=== PATIENT | male | born 1960 | race Caucasian/White ===

== ENCOUNTER 2017-09-25 08:04 | Outpatient (RCR) | payer MEDICAID | END 2017-11-09 | disposition home or self-care (01) | PROVIDERS: ATTEND Psychiatry & Neurology Neurology | DX: R42 Dizziness and giddiness (principal) ==

== ENCOUNTER → 2017-11-14 | Outpatient (CLI) | payer MEDICAID ==
--- NOTE | 2017-11-14 14:04 | Diagnostic Imaging Report ---
PROCEDURE: MR imaging cervical spine without contrast. TECHNIQUE: Multiplanar/multisequence MR imaging of the cervical spine was performed without contrast. INDICATION: Neck pain. COMPARISON: 05/27/2016. FINDINGS: The alignment of the cervical spine is normal. The vertebral body heights are well-maintained. The prevertebral soft tissues are within normal limits. The posterior fossa is unremarkable. The visualized portions of the cord are normal in signal intensity and morphology. C2-3 is unremarkable. At C3-4, there is some mild right uncovertebral joint hypertrophy with mild right neuroforaminal encroachment. At C4-5, there is also mild right uncovertebral joint hypertrophy with mild right neuroforaminal encroachment. At C5-6, there is broad-based annular bulging resulting in slight effacement of the ventral thecal sac. There is narrowing of the AP diameter of the spinal canal to 11 mm. There is bilateral uncovertebral joint hypertrophy with moderate bilateral neuroforaminal encroachment. At C6-7, there is some broad-based annular bulging and minimal uncovertebral joint hypertrophy. C7-T1 is unremarkable. IMPRESSION: Mild cervical spondylosis and degenerative disc disease as detailed above. Dictated by: Dictated on workstation # [id number]
== END ==
LOC: RAD 12:52
PROVIDERS: ATTEND Psychiatry & Neurology Neurology
DX: M50.222 Other cervical disc displacement at C5-C6 level (principal); M47.812 Spondylosis without myelopathy or radiculopathy, cervical region; M89.38 Hypertrophy of bone, other site
CPT/HCPCS: 72141

== ENCOUNTER → 2018-04-20 | Outpatient (CLI) | payer MEDICAID ==
[~2018-04-20] MED LIST: AMLO5TAB2 PO; ASPI-999 PO
== END ==
LOC: CARD 09:40
PROVIDERS: ATTEND Internal Medicine Cardiovascular Disease
DX: I10 Essential (primary) hypertension (principal); E78.1 Pure hyperglyceridemia; E78.2 Mixed hyperlipidemia; R06.02 Shortness of breath; I08.1 Rheumatic disorders of both mitral and tricuspid valves
CPT/HCPCS: 93306

== ENCOUNTER → 2018-11-25 | Outpatient (CLI) | payer MEDICARE, MEDICAID ==
[~2018-11-25] MED LIST changes: -AMLO5TAB2 PO; +AMLO5TAB9 PO
--- NOTE | 2018-11-25 09:24 | Diagnostic Imaging Report ---
PROCEDURE: CT sinuses without contrast TECHNIQUE: Multiple contiguous axial images were obtained through the sinuses without the use of intravenous contrast. Coronal and sagittal reformations were then performed. INDICATION: Chronic sinusitis. FINDINGS: The frontal sinus is clear. Ethmoid air cells and sphenoid sinus are clear. Bilateral maxillary sinuses are clear. No mucosal thickening or air-fluid levels are seen. Ostiomeatal complexes are patent. There is nasal septal deviation to the left. Mastoids are well aerated. IMPRESSION: Nasal septal deviation. There is no evidence of sinusitis. Dictated by: Dictated on workstation # [id number]
== END ==
LOC: RAD 09:05
PROVIDERS: ATTEND Otolaryngology Otolaryngology/Facial Plastic Surgery
DX: J32.9 Chronic sinusitis, unspecified (principal); J34.2 Deviated nasal septum
CPT/HCPCS: 70486

== ENCOUNTER → 2020-03-02 | Outpatient (CLI) | payer MEDICARE, MEDICAID ==
--- NOTE | 2020-03-02 13:47 | Diagnostic Imaging Report ---
CT CHEST SCREENING WO TECHNIQUE: Low-dose unenhanced CT of the chest was performed according to the screening protocol. Coronal MIP and sagittal MPR reformats are created. Automatic exposure controls were utilized to keep dose as low as reasonably achievable. INDICATION: 60-year-old current smoker with [id number] history of smoking. COMPARISON: None available. FINDINGS: Pulmonary findings: No endoluminal nodule within the trachea. Mild centrilobular emphysema is present. No pulmonary mass or consolidation. No pulmonary nodule. Extrapulmonary findings: No pleural effusion or axillary lymphadenopathy. No mediastinal, hilar or juxtaphrenic lymphadenopathy. Extensive coronary artery calcifications are present. Heart is normal in size without pericardial effusion. Normal caliber thoracic aorta. Esophagus is normal in appearance. No worrisome focal osseous lesions. IMPRESSION: 1. Baseline screening CT is negative for features of clinically active lung cancer. 2. Coronary artery calcifications. Lung-RADS category: 1 - Negative Recommendations: Continued annual screening with low-dose CT in 12 months. Dictated by: Dictated on workstation # [id number]
== END ==
LOC: RAD 12:08
PROVIDERS: ATTEND Nurse Practitioner Family
DX: Z12.2 Encounter for screening for malignant neoplasm of respiratory organs (principal); R91.1 Solitary pulmonary nodule; I25.10 Atherosclerotic heart disease of native coronary artery without angina pectoris; F17.210 Nicotine dependence, cigarettes, uncomplicated

== ENCOUNTER → 2023-02-13 | Outpatient (CLI) | payer MEDICARE, MEDICAID ==
[~2023-02-13] MED LIST changes: +AMLO-250 PO; -AMLO5TAB9 PO
--- NOTE | 2023-02-13 13:02 | Diagnostic Imaging Report ---
PROCEDURE: CT abdomen and pelvis without contrast. TECHNIQUE: Multiple contiguous axial images were obtained through the abdomen and pelvis without the use of intravenous contrast. Auto Exposure Controls were utilized during the CT exam to meet ALARA standards for radiation dose reduction. INDICATION: Left-sided flank pain for the last week and a half. No hematuria. History of stones. EXAMINATION: CT abdomen and pelvis without contrast 02/13/2023. COMPARISON: None FINDINGS: Within the visualized lungs, there is a tiny nodule in the posterior lateral aspect of the right middle lobe image #5. This measures 3 to 4 mm in size. This is stable since the CT chest from 03/02/2020. Nonopacified liver and spleen unremarkable. Pancreas and adrenal glands normal. Gallbladder unremarkable. There are multiple bilateral nonobstructive renal stones. Tiny hypodensities in the left kidney too small for characterization. No ureteral stones noted on the right. No hydronephrosis on either side. A 4 to 5 mm stone is seen in the distal one-third of the left ureter without secondary hydronephrosis. Minimal fat stranding however is seen along the course of the ureter, likely reactive. There is no ascites. There is no free air. There is diverticular disease throughout the left colon. No evidence for acute diverticulitis. Appendix normal. There is no acute osseous abnormality. Atherosclerotic disease incidentally noted. IMPRESSION: 1. A 4 to 5 mm stone in the distal one-third of the left ureter with no hydronephrosis. Bilateral nonobstructive renal stones also noted. 2. Small nodule in the visualized right middle lobe, stable since 2019 suggesting a benign process. 3. Otherwise, incidental findings as above. Report faxed to HUNTER Biggs, at 1:00 PM 02/13/2023/cb Dictated by: Dictated on workstation # [id number]
== END ==
LOC: RAD 12:00
PROVIDERS: ATTEND Physician Assistant
DX: N20.0 Calculus of kidney (principal); R91.1 Solitary pulmonary nodule
CPT/HCPCS: 74176